=== PATIENT | male | born 1970 | race Caucasian/White ===

== ENCOUNTER 2018-11-21 07:48 | Emergency (ER) | payer MEDICARE, OTHER ==
[~2018-11-21] VITALS: Ht 177.8 cm; Wt 62.7 kg
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
[2018-11-21] MEDS ORDERED: ATOM40CA PO (08:12)
[2018-11-21] MEDS ORDERED: HYDR-36 PO (08:12)
[2018-11-21] MEDS ORDERED: CARB200T PO (08:12)
[2018-11-21] MEDS ORDERED: BACL20TA PO (08:12)
[2018-11-21] MEDS ORDERED: BUPIVACAINE 0.25% ONE ×2 (08:15→08:37)
[2018-11-21] MEDS ORDERED: BUPIVACAINE/PF 0.5% INFIL ONE (08:30)
[2018-11-21 10:27] VITALS: BP 116/86
--- NOTE | 2018-11-21 10:27 | NUR ---
PT TOLERATED CLEANING AND SUTURE REPAIR. Patient/Caregiver given discharge instructions and they have confirmed that they understand the instructions. Patient ambulatory with steady gait.
[2018-11-21] MEDS ORDERED: DIPH,PERTUSS(ACELL),TET VAC/PF NC IM-VACC ONE (10:30)
== END 2018-11-21 10:29 | disposition home or self-care (01) ==
LOC: ED 09:41
DX: S60.571A Other superficial bite of hand of right hand, initial encounter (principal); W54.0XXA Bitten by dog, initial encounter; Y93.89 Activity, other specified; Y92.830 Public park as the place of occurrence of the external cause; Y99.8 Other external cause status
CPT/HCPCS: 12042